=== PATIENT | female | born 1960 | race Asian ===

== ENCOUNTER 2021-08-07 07:41 | Day surgery (SDC) | payer MEDICAID, SELFPAY ==
[~2021-08-07] VITALS: Ht 172.7 cm; Wt 62.6 kg
[2021-08-07] MEDS ORDERED: MEPERIDINE 100 MG INJ. 100 MG/ML VIAL ONE (08:07)
[2021-08-07] MEDS ORDERED: MIDAZOLAM HCL 5 MG/5 ML VIAL ONE (08:07)
[2021-08-07 13:34] VITALS: BP_SYST 154
== END 2021-08-07 10:15 | disposition home or self-care (01) ==
LOC: SDS 07:41 → SMU 07:42 → SDS 10:15
PROVIDERS: ATTEND Internal Medicine Gastroenterology
DX: Z12.11 Encounter for screening for malignant neoplasm of colon (principal); K63.5 Polyp of colon; K64.8 Other hemorrhoids; Z20.822 Contact with and (suspected) exposure to COVID-19; Z79.899 Other long term (current) drug therapy
CPT/HCPCS: 36415; 45385; 87426; 88305; 99152; 99153; G0378; J2175; J2250; U0003